=== PATIENT | female | born 1945 | race African-American/Black ===

== ENCOUNTER 2018-11-04 19:37 | Emergency (ER) | payer MEDICARE, OTHER ==
[~2018-11-04] VITALS: Ht 175.3 cm; Wt 88.0 kg
[2018-11-04] MEDS ORDERED: HYDROCODONE/ACETAMINOPHEN 10/325MG TABLET PO ONE (23:15)
[2018-11-05] MEDS ORDERED: DEXT 5% WATER + KCL 20MEQ/L 1,000 ML IV ONE (03:00)
[2018-11-05] MEDS ORDERED: MORPHINE SULFATE 4 MG/ML CPJ (NOT FOR IM USE) IV PRN (03:00)
[2018-11-05 17:00] VITALS: BP 119/80
[2018-11-05] MEDS ORDERED: MORPHINE SULFATE 2 MG/ML CPJ (NOT FOR IM USE) IV ONE (17:15)
== END 2018-11-05 17:30 | disposition short-term general hospital (02) ==
LOC: ER 19:37
DX: S82.191A Other fracture of upper end of right tibia, initial encounter for closed fracture (principal); S82.491A Other fracture of shaft of right fibula, initial encounter for closed fracture; M19.90 Unspecified osteoarthritis, unspecified site; E11.9 Type 2 diabetes mellitus without complications; I51.9 Heart disease, unspecified; Z96.651 Presence of right artificial knee joint; Z96.649 Presence of unspecified artificial hip joint; Z85.3 Personal history of malignant neoplasm of breast; W01.0XXA Fall on same level from slipping, tripping and stumbling without subsequent striking against object, initial encounter; Y93.89 Activity, other specified; Y92.018 Other place in single-family (private) house as the place of occurrence of the external cause
CPT/HCPCS: 29505; 73560; 96374; 96376; 99285; J2270